=== PATIENT | female | born 1995 | race Caucasian/White ===

== ENCOUNTER 2017-02-19 03:43 | Observation (INO) ==
[2017-02-19] MEDS ORDERED: 0.9 % Sodium Chloride 1,000 ML IVC ONE ×2 (03:55→09:02)
--- NOTE | 2017-02-19 04:06 | Emergency Department Note ---
Disposition Clinical Impression: Abdominal pain Disposition: Still a Patient Condition: Good Forms: Work/School Release, ED Satisfaction Letter Time of Disposition: 05:48 Abdominal Pain HPI - General Chief Complaint: ED Abdominal Pain Stated Complaint: Abdominal Pain Time Seen by Provider: 02/19/17 03:55 Source: patient, EMS Mode of arrival: private vehicle Limitations: no limitations Nursing Notes Reviewed: Yes Vital Signs Reviewed: Yes - History of Present Illness HPI Narrative: 21-year-old female patient presents to the emergency department via EMS with complaint of epigastric abdominal pain. Patient was sent to this facility from [facility] for concerns of posible cholecystitis. Patient is 18 days from a vaginal delivery. She was evaluated and found to have an elevated bilirubin as well as elevated liver enzymes. Patient states that her abdominal pain began approximately 7 hours ago. Patient states that she has not eaten for 14 hours. She denies any fever, chills, nausea or vomiting. Pt Subjective Complaint: abdominal pain Onset (ago): hour(s) Consistency: intermittent Location: LUQ, epigastric Pain Severity: none Pain Scale: 0 Quality: aching Radiation: back Migration to: no migration Improves with: nothing Worsens with: nothing Associated symptoms: Reports: denies other symptoms Treatments prior to arrival: none - Related Data Allergies Allergy/AdvReac Type Severity Reaction Status Date / Time No Known Allergies Allergy Verified 02/19/17 04:00 All systems ED: reviewed and negative except as stated. Constitutional: Denies: fever, chills Cardiovascular: Denies: chest pain, palpitations Respiratory: Denies: cough, dyspnea Gastrointestinal: Reports: abdominal pain. Denies: nausea, vomiting Musculoskeletal: Denies: back pain, neck pain Integumentary: Denies: rash, abrasion, lesions Neurological: Denies: headache Psychiatric: Denies: anxiety, depression, suicidal thoughts, homicidal thoughts Abdominal Pain PMH - Past Medical History Medical history: Reports: no medical history Female Surgical History: Reports: other Psychiatric history: Reports: no psych history - Social History Smoking status: Never smoker Alcohol use: Reports: none Drug use: Reports: none Physical Exam - General Limitations: no limitations General appearance: alert - Head Head exam: atraumatic, normocephalic, normal inspection - Eye Eye exam: Present: normal appearance, PERRL - Neck Neck exam: Present: normal inspection, full ROM, trachea midline - Chest Chest inspection: Present: normal inspection, symmetric chest wall rise - Respiratory Respiratory exam: Present: normal lung sounds bilaterally. Absent: respiratory distress - Cardiovascular Cardiovascular exam: Present: regular rate, normal rhythm, normal heart sounds - Abdominal Exam Abdominal exam: Present: soft, tenderness, normal bowel sounds. Absent: distention, guarding, rebound, rigidity Abdominal tenderness: Present: LUQ, epigastrium, mild - Extremities Exam Extremities exam: Present: normal inspection, full ROM. Absent: tenderness, pedal edema - Expanded Lower Extremity Exam Gait: observed and normal - Back Exam Back exam: Present: normal inspection, full ROM. Absent: tenderness - Neurological Exam Neurological exam: Present: alert, oriented X3 - Psychiatric Psychiatric exam: Present: normal affect, normal mood - Skin Skin exam: Present: warm, dry, intact, normal color Course - Reevaluation(s) Reevaluation #1: Slightly elevated white blood cell count with no shift. Slightly elevated bilirubin. Patient resting comfortably in no distress. Asleep on reevaluation. Plan is to get an ultrasound of the gallbladder at 7 AM. Care will be transferred to [facility] @ 0600. Vital Signs Temperature 99.2 F 02/19/17 03:45 Pulse Rate 82 02/19/17 03:45 Respiratory Rate 18 02/19/17 03:45 Blood Pressure 126/87 02/19/17 03:45 O2 Sat by Pulse Oximetry 100 02/19/17 03:45 Temperature 99.2 F 02/19/17 03:45 Pulse Rate 82 02/19/17 03:45 Respiratory Rate 18 02/19/17 03:45 Blood Pressure 126/87 02/19/17 03:45 O2 Sat by Pulse Oximetry 100 02/19/17 03:45 Oxygen Delivery Oxygen Delivery Room Air Abdominal Pain - Lab Data Lab results reviewed: Yes I reviewed the patient's lab results.
[2017-02-19 04:21] LABS: Basophils # 0.1 K/mcL (0.0-0.2); Basophils % 0.4 %; Eosinophils # 0.4 K/mcL (0.0-0.6); Eosinophils % 3.3 %; Hematocrit 24.8 % (35.3-44.9); Hemoglobin 8.1 g/dL (11.5-15.4); Immature Granulocytes % 0.9 % (0-4); Lymphocytes # 3.2 K/mcL (0.6-4.6); Lymphocytes % 27.7 %; Mean Corpuscular HGB Conc 32.7 g/dL (31.6-35.5); Mean Corpuscular Hemoglobin 32.1 pg (28.0-33.3); Mean Corpuscular Volume 98.4 fL (83.0-100.0); Mean Platelet Volume 9.4 fL (9.4-12.4); Monocytes # 0.6 K/mcL (0.0-1.3); Monocytes % 4.9 %; Neutrophils # 7.3 K/mcL (1.6-8.9); Nucleated Red Blood Cells 0.4 /100 WBC (0); Platelet Count 459 K/mcL (140-400); Red Blood Count 2.52 M/mcL (3.82-4.97); Red Cell Distribution Width 22.1 % (11.5-14.5); Segmented Neutrophils % 62.8 %
[2017-02-19 04:23] LABS: Bilirubin,Urine Negative (Negative); Blood,Urine Small (Negative); Clarity,Urine Clear (Clear); Color,Urine Yellow (Yellow); Glucose,Urine (UA) Normal (Normal); Ketones,Urine Negative (Negative); Leukocyte Esterase,Urine Moderate (Negative); Nitrite,Urine Negative (Negative); PH,Urine 7.5 pH Units (5.0-8.0); Protein,Urine Negative (Neg-Trace); Specific Gravity,Urine 1.007 (1.010-1.025); Urobilinogen,Urine Normal (Normal)
[2017-02-19 04:25] LABS: INR 1.2; Prothrombin Time 12.5 Seconds (9.4-12.1)
[2017-02-19 04:26] LABS: Bacteria,Urine None Seen per hpf (None-Few); Hyaline Casts,Urine None Seen per lpf (None-Few); RBC,Urine 0-3 per hpf (0-3); Squamous Epithelial Cell,Urine Moderate per lpf (None-Few)
[2017-02-19 04:27] LABS: Activated Partial Thrombo Time 30.8 Seconds (26.0-36.0)
[2017-02-19 04:35] LABS: Alanine Aminotransferase 44 Units/L (0-55); Albumin 3.3 g/dL (3.5-5.0); Albumin/Globulin Ratio 0.9 (1.1-2.2); Alkaline Phosphatase 334 Units/L (38-126); Amylase 48 Units/L (25-125); Aspartate Amino Transferase 76 Units/L (5-34); BUN/Creatinine Ratio 8 (6-26); Bilirubin,Direct 0.8 mg/dL (0.0-0.5); Bilirubin,Indirect 1.4 mg/dL (0.0-1.2); Bilirubin,Total 2.2 mg/dL (0.2-1.2); Blood Urea Nitrogen 6 mg/dL (7-20); Calcium 8.8 mg/dL (8.6-10.8); Carbon Dioxide 29 mEq/L (19-29); Chloride 106 mEq/L (98-109); Globulin 3.5 g/dL (2.4-3.5); Glucose 96 mg/dL (70-99); Lipase 34 Units/L (8-78); Osmolality,Calculated 293 (280-300); Potassium 3.5 mEq/L (3.5-4.5); Sodium 143 mEq/L (136-145); Total Protein 6.8 g/dL (6.0-8.3); eGFR For African Americans > 60 (> 60); eGFR For Non-African Americans > 60 (> 60)
--- NOTE | 2017-02-19 06:24 | Emergency Department Note ---
Disposition Clinical Impression: Acute cholecystitis Disposition: Admitted As Inpatient Condition: Fair Referrals: NO,PCP [Primary Care Provider] - Forms: ED Satisfaction Letter, Work/School Release Time of Disposition: 09:02 Abdominal Pain HPI - General Chief Complaint: ED Abdominal Pain Stated Complaint: Abdominal Pain Time Seen by Provider: 02/19/17 03:55 Source: patient, EMS Mode of arrival: private vehicle - History of Present Illness Pt Subjective Complaint: abdominal pain Location: LUQ, epigastric Pain Severity: none Pain Scale: 0 Quality: aching Migration to: no migration Improves with: nothing Worsens with: nothing Associated symptoms: Reports: denies other symptoms - Related Data Allergies Allergy/AdvReac Type Severity Reaction Status Date / Time No Known Allergies Allergy Verified 02/19/17 04:00 Constitutional: Denies: fever, chills Cardiovascular: Denies: chest pain, palpitations Respiratory: Denies: cough, dyspnea Gastrointestinal: Reports: abdominal pain. Denies: nausea, vomiting Musculoskeletal: Denies: back pain, neck pain Integumentary: Denies: rash, abrasion, lesions Neurological: Denies: headache Psychiatric: Denies: anxiety, depression, suicidal thoughts, homicidal thoughts Abdominal Pain PMH - Past Medical History Medical history: Reports: no medical history Female Surgical History: Reports: other Psychiatric history: Reports: no psych history - Social History Smoking status: Never smoker Alcohol use: Reports: none Drug use: Reports: none Physical Exam - General Limitations: no limitations General appearance: alert Course Course Narrative: 0600: I have assumed care of this patient from Byron Parry PA-C due to mid- level should change. Please see Zelalem's note for physical exam and care performed up until this point. Briefly, the patient is a 25-year-old female that was sent from [facility] for evaluation of epigastric and right upper quadrant pain that began abruptly at approximately 9 PM yesterday evening. She was found to have an elevated bilirubin as well as elevated liver enzymes. The patient is 18 days from a vaginal delivery without complications. She denies fever, chills, nausea, vomiting. She states that her abdominal pain did not begin postprandially, and that she had not eaten for approximately 14 hours prior to the onset of her abdominal pain. Laboratory results have been reviewed and an ultrasound of the gallbladder is pending at this time. The patient is resting in bed comfortably at this time. I spoke with Dr. Doan, who recommends consultation with surgery on-call for further recommendations. 09: I spoke with Dr. Aldana, general surgery. Dr. Aldana accepts the patient for admission to his service. Vital Signs Temperature 99.2 F 02/19/17 03:45 Pulse Rate 82 02/19/17 03:45 Respiratory Rate 18 02/19/17 03:45 Blood Pressure 126/87 02/19/17 03:45 O2 Sat by Pulse Oximetry 100 02/19/17 03:45 Temperature 99.2 F 02/19/17 03:45 Pulse Rate 101 02/19/17 08:35 Respiratory Rate 16 02/19/17 08:35 Blood Pressure 121/91 02/19/17 08:35 O2 Sat by Pulse Oximetry 99 02/19/17 08:36 Oxygen Delivery Oxygen Delivery Room Air Abdominal Pain - Medical Records Medical records reviewed: Yes I reviewed the patient's medical records. - Lab Data Lab results reviewed: Yes I reviewed the patient's lab results. Lab results narrative: Laboratory Last Values WBC 11.7 K/mcL (4.3-11.1) H 02/19/17 04:09 RBC 2.52 M/mcL (3.82-4.97) L 02/19/17 04:09 Hgb 8.1 g/dL (11.5-15.4) L 02/19/17 04:09 Hct 24.8 % (35.3-44.9) L 02/19/17 04:09 MCV 98.4 fL (83.0-100.0) 02/19/17 04:09 MCH 32.1 pg (28.0-33.3) 02/19/17 04:09 MCHC 32.7 g/dL (31.6-35.5) 02/19/17 04:09 RDW 22.1 % (11.5-14.5) H 02/19/17 04:09 Plt Count 459 K/mcL (140-400) H 02/19/17 04:09 MPV 9.4 fL (9.4-12.4) 02/19/17 04:09 Immature Gran % 0.9 % (0-4) 02/19/17 04:09 Seg Neutrophils % 62.8 % 02/19/17 04:09 Lymphocytes % 27.7 % 02/19/17 04:09 Monocytes % 4.9 % 02/19/17 04:09 Eosinophils % 3.3 % 02/19/17 04:09 Basophils % 0.4 % 02/19/17 04:09 Neutrophils # 7.3 K/mcL (1.6-8.9) 02/19/17 04:09 Lymphocytes # 3.2 K/mcL (0.6-4.6) 02/19/17 04:09 Monocytes # 0.6 K/mcL (0.0-1.3) 02/19/17 04:09 Eosinophils # 0.4 K/mcL (0.0-0.6) 02/19/17 04:09 Basophils # 0.1 K/mcL (0.0-0.2) 02/19/17 04:09 Nucleated RBCs/100 WBC 0.4 /100 WBC (0) H 02/19/17 04:09 PT 12.5 Seconds (9.4-12.1) H 02/19/17 04:09 INR 1.2 02/19/17 04:09 APTT 30.8 Seconds (26.0-36.0) 02/19/17 04:09 Sodium 143 mEq/L (136-145) 02/19/17 04:09 Potassium 3.5 mEq/L (3.5-4.5) 02/19/17 04:09 Chloride 106 mEq/L (98-109) 02/19/17 04:09 Carbon Dioxide 29 mEq/L (19-29) 02/19/17 04:09 BUN 6 mg/dL (7-20) L 02/19/17 04:09 Creatinine 0.80 mg/dL (0.57-1.11) 02/19/17 04:09 Est GFR ( Amer) > 60 (> 60) 02/19/17 04:09 Est GFR (Non-Af Amer) > 60 (> 60) 02/19/17 04:09 BUN/Creatinine Ratio 8 (6-26) 02/19/17 04:09 Glucose 96 mg/dL (70-99) 02/19/17 04:09 Calculated Osmolality 293 (280-300) 02/19/17 04:09 Calcium 8.8 mg/dL (8.6-10.8) 02/19/17 04:09 Total Bilirubin 2.2 mg/dL (0.2-1.2) H 02/19/17 04:09 Direct Bilirubin 0.8 mg/dL (0.0-0.5) H 02/19/17 04:09 Indirect Bilirubin 1.4 mg/dL (0.0-1.2) H 02/19/17 04:09 AST 76 Units/L (5-34) H 02/19/17 04:09 ALT 44 Units/L (0-55) 02/19/17 04:09 Alkaline Phosphatase 334 Units/L (38-126) H 02/19/17 04:09 Serum Total Protein 6.8 g/dL (6.0-8.3) 02/19/17 04:09 Albumin 3.3 g/dL (3.5-5.0) L 02/19/17 04:09 Globulin 3.5 g/dL (2.4-3.5) 02/19/17 04:09 Albumin/Globulin Ratio 0.9 (1.1-2.2) L 02/19/17 04:09 Amylase 48 Units/L (25-125) 02/19/17 04:09 Lipase 34 Units/L (8-78) 02/19/17 04:09 Urine Color Yellow (Yellow) 02/19/17 04:09 Urine Clarity Clear (Clear) 02/19/17 04:09 Urine pH 7.5 pH Units (5.0-8.0) 02/19/17 04:09 Ur Specific [place] 1.007 (1.010-1.025) L 02/19/17 04:09 Urine Protein Negative mg/dL (Neg-Trace) 02/19/17 04:09 Urine Glucose (UA) Normal mg/dL (Normal) 02/19/17 04:09 Urine Ketones Negative mg/dL (Negative) 02/19/17 04:09 Urine Blood Small (Negative) H 02/19/17 04:09 Urine Nitrite Negative (Negative) 02/19/17 04:09 Urine Bilirubin Negative (Negative) 02/19/17 04:09 Urine Urobilinogen Normal mg/dL (Normal) 02/19/17 04:09 Ur Leukocyte Esterase Moderate (Negative) H 02/19/17 04:09 Urine Microscopic RBC 0-3 per hpf (0-3) 02/19/17 04:09 Urine Microscopic WBC 5-15 per hpf (0-3) H 02/19/17 04:09 Ur Squamous Epith Cells Moderate per lpf (None-Few) H 02/19/17 04:09 Urine Bacteria None Seen per hpf (None-Few) 02/19/17 04:09 Hyaline Casts None Seen per lpf (None-Few) 02/19/17 04:09 Ur Culture Indicated? YES (NO) A 02/19/17 04:09 Urine Test Negative (Negative) 02/19/17 04:09 Result diagrams: 02/19/17 04:09 02/19/17 04:09 Lab Results 02/19/17 02/19/17 02/19/17 Range/Units 04:09 04:09 04:09 WBC 11.7 H (4.3-11.1) K/mcL RBC 2.52 L (3.82-4.97) M/mcL Hgb 8.1 L (11.5-15.4) g/dL Hct 24.8 L (35.3-44.9) % MCV 98.4 (83.0-100.0) fL MCH 32.1 (28.0-33.3) pg MCHC 32.7 (31.6-35.5) g/dL RDW 22.1 H (11.5-14.5) % Plt Count 459 H (140-400) K/mcL MPV 9.4 (9.4-12.4) fL Immature Gran % 0.9 (0-4) % Seg Neutrophils % 62.8 % Lymphocytes % 27.7 % Monocytes % 4.9 % Eosinophils % 3.3 % Basophils % 0.4 % Neutrophils # 7.3 (1.6-8.9) K/mcL Lymphocytes # 3.2 (0.6-4.6) K/mcL Monocytes # 0.6 (0.0-1.3) K/mcL Eosinophils # 0.4 (0.0-0.6) K/mcL Basophils # 0.1 (0.0-0.2) K/mcL Nucleated RBCs/100 WBC 0.4 H (0) /100 WBC PT 12.5 H (9.4-12.1) Seconds INR 1.2 APTT 30.8 (26.0-36.0) Seconds Sodium (136-145) mEq/L Potassium (3.5-4.5) mEq/L Chloride (98-109) mEq/L Carbon Dioxide (19-29) mEq/L BUN (7-20) mg/dL Creatinine (0.57-1.11) mg/dL Est GFR ( Amer) (> 60) Est GFR (Non-Af Amer) (> 60) BUN/Creatinine Ratio (6-26) Glucose (70-99) mg/dL Calculated Osmolality (280-300) Calcium (8.6-10.8) mg/dL Total Bilirubin (0.2-1.2) mg/dL Direct Bilirubin (0.0-0.5) mg/dL Indirect Bilirubin (0.0-1.2) mg/dL AST (5-34) Units/L ALT (0-55) Units/L Alkaline Phosphatase (38-126) Units/L Serum Total Protein (6.0-8.3) g/dL Albumin (3.5-5.0) g/dL Globulin (2.4-3.5) g/dL Albumin/Globulin Ratio (1.1-2.2) Amylase (25-125) Units/L Lipase (8-78) Units/L Urine Color Yellow (Yellow) Urine Clarity Clear (Clear) Urine pH 7.5 (5.0-8.0) pH Units Ur Specific [place] 1.007 L (1.010-1.025) Urine Protein Negative (Neg-Trace) mg/dL Urine Glucose (UA) Normal (Normal) mg/dL Urine Ketones Negative (Negative) mg/dL Urine Blood Small H (Negative) Urine Nitrite Negative (Negative) Urine Bilirubin Negative (Negative) Urine Urobilinogen Normal (Normal) mg/dL Ur Leukocyte Esterase Moderate H (Negative) Urine Microscopic RBC 0-3 (0-3) per hpf Urine Microscopic WBC 5-15 H (0-3) per hpf Ur Squamous Epith Cells Moderate H (None-Few) per lpf Urine Bacteria None Seen (None-Few) per hpf Hyaline Casts None Seen (None-Few) per lpf Ur Culture Indicated? YES A (NO) Urine Test (Negative) 02/19/17 02/19/17 Range/Units 04:09 04:09 WBC (4.3-11.1) K/mcL RBC (3.82-4.97) M/mcL Hgb (11.5-15.4) g/dL Hct (35.3-44.9) % MCV (83.0-100.0) fL MCH (28.0-33.3) pg MCHC (31.6-35.5) g/dL RDW (11.5-14.5) % Plt Count (140-400) K/mcL MPV (9.4-12.4) fL Immature Gran % (0-4) % Seg Neutrophils % % Lymphocytes % % Monocytes % % Eosinophils % % Basophils % % Neutrophils # (1.6-8.9) K/mcL Lymphocytes # (0.6-4.6) K/mcL Monocytes # (0.0-1.3) K/mcL Eosinophils # (0.0-0.6) K/mcL Basophils # (0.0-0.2) K/mcL Nucleated RBCs/100 WBC (0) /100 WBC PT (9.4-12.1) Seconds INR APTT (26.0-36.0) Seconds Sodium 143 (136-145) mEq/L Potassium 3.5 (3.5-4.5) mEq/L Chloride 106 (98-109) mEq/L Carbon Dioxide 29 (19-29) mEq/L BUN 6 L (7-20) mg/dL Creatinine 0.80 (0.57-1.11) mg/dL Est GFR ( Amer) > 60 (> 60) Est GFR (Non-Af Amer) > 60 (> 60) BUN/Creatinine Ratio 8 (6-26) Glucose 96 (70-99) mg/dL Calculated Osmolality 293 (280-300) Calcium 8.8 (8.6-10.8) mg/dL Total Bilirubin 2.2 H (0.2-1.2) mg/dL Direct Bilirubin 0.8 H (0.0-0.5) mg/dL Indirect Bilirubin 1.4 H (0.0-1.2) mg/dL AST 76 H (5-34) Units/L ALT 44 (0-55) Units/L Alkaline Phosphatase 334 H (38-126) Units/L Serum Total Protein 6.8 (6.0-8.3) g/dL Albumin 3.3 L (3.5-5.0) g/dL Globulin 3.5 (2.4-3.5) g/dL Albumin/Globulin Ratio 0.9 L (1.1-2.2) Amylase 48 (25-125) Units/L Lipase 34 (8-78) Units/L Urine Color (Yellow) Urine Clarity (Clear) Urine pH (5.0-8.0) pH Units Ur Specific [place] (1.010-1.025) Urine Protein (Neg-Trace) mg/dL Urine Glucose (UA) (Normal) mg/dL Urine Ketones (Negative) mg/dL Urine Blood (Negative) Urine Nitrite (Negative) Urine Bilirubin (Negative) Urine Urobilinogen (Normal) mg/dL Ur Leukocyte Esterase (Negative) Urine Microscopic RBC (0-3) per hpf Urine Microscopic WBC (0-3) per hpf Ur Squamous Epith Cells (None-Few) per lpf Urine Bacteria (None-Few) per hpf Hyaline Casts (None-Few) per lpf Ur Culture Indicated? (NO) Urine Test Negative (Negative) - Radiology Data Radiology results reviewed: Yes I reviewed the patient's radiology results. Gallbladder Ultrasound 02/19/17 06:15 IMPRESSION: 1. Gallstones with mild gallbladder wall thickening. This may suggest cholecystitis. Consider a follow-up nuclear medicine HIDA scan for further evaluation. 2. Nonspecific 1.7 cm hypoechoic nodule within the right hepatic lobe, most likely a cyst. Suggest further characterization of this abnormality with a follow-up multiphasic liver protocol CT or MR study. 3. Normal sonographic appearance of the common bile duct, right kidney, and pancreas. D/ / Kar Douglas MD / Kra Douglas MD Interpreting Provider: Kra Douglas MD Attestation Statement - Attestation Attestation: I examined this patient and my medical decision-making was reviewed with the Advanced Practice Nurse. I agree with the documented findings, disposition and treatment plan as described except to the extent set forth below. Pain resolved at this point, but has significant tenderness to palpation; no guarding or peritonitis. Labs and ultrasound consistent with calculous cholecystitis; CBD normal. Surgery paged.
--- NOTE | 2017-02-19 06:26 | Emergency Department Note ---
START Narrative - START START: I, David Vasques, examined this patient and my medical decision-making was reviewed with the [employer]ED OPERATOR MAINTAINER/PA/Advanced Practice Nurse/Resident Physician. I agree with the documented findings, disposition and treatment plan as described except to the extent set forth below. 21-year-old female, 18 days from vaginal delivery without complication. Present for epigastric and right upper quadrant abdominal pain, sent in from urgent care for formal ultrasound of the gallbladder. Patient reports her pain is sharp, stabbing, located in the right upper quadrant and epigastrium, nonradiating, lasting to 3 hours at a time, not associated with food intake. Patient has elevated bilirubin, elevated LFTs. Denies change of pain with food intake. Patient has mild vaginal bleeding but denies vaginal discharge. Patient reports being constipated for the past 3 weeks, taking multiple stool softeners over the past week. Patient will be signed out to the day physician pending formal ultrasound of the gallbladder.
[2017-02-19] MEDS ORDERED: *HR* HYDROmorphone (PF) 1 MG/ML SYRINGE IVP PRN (10:11)
[2017-02-19] MEDS ORDERED: 0.9 % Sodium Chloride 1,000 ML IVC SCH ×4 (10:15→17:32)
[2017-02-19] MEDS ORDERED: Ondansetron 4 MG/2 ML VIAL IVP PRN ×3 (10:28→17:32)
[2017-02-19] MEDS ORDERED: Ondansetron 4 MG/2 ML VIAL IVP SCH (12:00)
--- NOTE | 2017-02-19 14:55 | General Surg History&Physical ---
Date of Encounter: 02/19/17 Time of Encounter: 14:30 Assessment and Plan (1) Acute cholecystitis Current Visit: Yes Status: Acute Plan for laparoscopic cholecystectomy with cholangiogram today. Risks, benefits , and expected outcomes explained to the patient and she agrees to proceed. The assessment and plan as outlined above was discussed with the patient and/or family members who expressed understanding and agreement. All questions were answered. History of Present Illness HPI: Ms. Babb is a 21 year old female that is 18 days status post vaginal delivery. She states she had 2 episodes during the end of her when she had right upper quadrant pain. Pain started approximate 14 hours ago. She states it was not post prandial. She does report pain in her right upper quadrant with some associated nausea when it does occur. She rates the pain is moderate and aching in nature. Past Med Surg Social Fam HX - Past Medical History Medical history: no medical history Psychiatric history: no psych history - Social History Smoking Status: Never smoker Smokeless Tobacco Status: No Alcohol use: none Drug use: none Medications and Allergies No Known Home Drugs 02/19/17 [History] Allergies No Known Allergies Allergy (Verified 02/19/17 04:00) Review of Systems All systems PM: reviewed and no additional remarkable complaints except as stated All systems PM: A 10-system review of systems was performed and is negative for pertinent findings except as documented above in the HPI. General Surgery Exam Initial Vital Signs Temp Pulse Resp BP Pulse Ox 99.2 F 82 18 126/87 100 02/19/17 03:45 02/19/17 03:45 02/19/17 03:45 02/19/17 03:45 02/19/17 03:45 - Eyes PERRL, normal ocular movement - Neck no bruits, trachea midline - Respiratory normal respiratory effort - Cardiovascular Cardiovascular exam: Present: NR, no murmurs/rubs/gallops - Abdomen Abdomen general surgery: Present: tender Abdominal Tenderness: Present: RUQ - Neurologic Present: CN 2-12 grossly intact, normal coordination, normal sensation Results - Labs 02/19/17 04:09 02/19/17 04:09 Abnormal lab results WBC 11.7 K/mcL (4.3-11.1) H 02/19/17 04:09 RBC 2.52 M/mcL (3.82-4.97) L 02/19/17 04:09 Hgb 8.1 g/dL (11.5-15.4) L 02/19/17 04:09 Hct 24.8 % (35.3-44.9) L 02/19/17 04:09 RDW 22.1 % (11.5-14.5) H 02/19/17 04:09 Plt Count 459 K/mcL (140-400) H 02/19/17 04:09 Nucleated RBCs/100 WBC 0.4 /100 WBC (0) H 02/19/17 04:09 PT 12.5 Seconds (9.4-12.1) H 02/19/17 04:09 BUN 6 mg/dL (7-20) L 02/19/17 04:09 Total Bilirubin 2.2 mg/dL (0.2-1.2) H 02/19/17 04:09 Direct Bilirubin 0.8 mg/dL (0.0-0.5) H 02/19/17 04:09 Indirect Bilirubin 1.4 mg/dL (0.0-1.2) H 02/19/17 04:09 AST 76 Units/L (5-34) H 02/19/17 04:09 Alkaline Phosphatase 334 Units/L (38-126) H 02/19/17 04:09 Albumin 3.3 g/dL (3.5-5.0) L 02/19/17 04:09 Albumin/Globulin Ratio 0.9 (1.1-2.2) L 02/19/17 04:09 Ur Specific [place] 1.007 (1.010-1.025) L 02/19/17 04:09 Urine Blood Small (Negative) H 02/19/17 04:09 Ur Leukocyte Esterase Moderate (Negative) H 02/19/17 04:09 Urine Microscopic WBC 5-15 per hpf (0-3) H 02/19/17 04:09 Ur Squamous Epith Cells Moderate per lpf (None-Few) H 02/19/17 04:09 Ur Culture Indicated? YES (NO) A 02/19/17 04:09 All other labs normal. - Imaging US - abdomen: image reviewed
[2017-02-19] MEDS ORDERED: *HR* OxyCODONE/APAP 5/325 TABLET PO PRN (14:56)
--- NOTE | 2017-02-19 14:59 | Operative Note ---
Date of procedure: 02/19/17 Pre-op diagnosis: Cholecystitis Post-op diagnosis: same Procedure: Laparoscopic cholecystectomy with cholangiogram Anesthesia: ALICIA Surgeon: Walker Aldana Estimated blood loss (cc): 5 Specimen: gb Condition: stable Disposition: same day Procedure in Detail: After informed consent, patient was taken the operating room placed in the supine position. After adequate sedation anesthesia the abdomen was prepped and draped. An incision was made in the subxiphoid region with an eleven blade knife. A 12 mm cannula was then placed into the abdomen under direct visualization. Once a pneumoperitoneum was established two individual 8 mm cannulas were placed in the right and left upper quadrant. The patient was placed in a headdown position the abdomen was evaluated and found to have a right and left inguinal hernias. The robot was docked over the patient's left hip. The robotic arms were connected to the 8 mm cannulas. A Cadiere clamp and large suture cut needle stake driver was placed into the abdomen. A 4 x 6" mesh had been cut and fashioned and placed within the abdomen. A 2 x 6 mesh was also placed. The peritoneum was then taken down scissors. The pubic tubercle was visualized, as was the iliac artery and vein and the inferior epigastric vessels. The hernia sac was seen attached to the spermatic cord structures. This was dissected free from the cord structures. Once completed the 4 x 6 piece of mesh was then placed in the preperitoneal space. It was sutured to the fascia of the pubic tubercle and an 0 Vicryl suture was then used to run the mesh in place medially and superiorly. The inferior limb of the mesh was brought inferior to the spermatic cord structures area it too was sutured superiorly and laterally. The 2 x 6 piece of mesh was then placed over the internal ring. It was sutured again to the pubic tubercle medially and brought out through the peritoneum. A second suture was brought out laterally on the peritoneum they were run towards the midline, then tied and secured. A second 4 x 6" mesh had been cut and fashioned and placed within the abdomen. A 2 x 6 mesh was also placed. The peritoneum was then taken down scissors. The pubic tubercle was visualized, as was the iliac artery and vein and the inferior epigastric vessels. The hernia sac was seen attached to the spermatic cord structures. This was dissected free from the cord structures. Once completed the 4 x 6 piece of mesh was then placed in the preperitoneal space. It was sutured to the fascia of the pubic tubercle and an 0 Vicryl suture was then used to run the mesh in place medially and superiorly. The inferior limb of the mesh was brought inferior to the spermatic cord structures area it too was sutured superiorly and laterally. The 4 x 6 piece of mesh was then placed over the internal ring. It was sutured again to the pubic tubercle medially and brought out through the peritoneum. A second suture was brought out laterally on the peritoneum they were run towards the midline, then tied and secured 4 individual needles were then retrieved from the abdomen. The pneumoperitoneum was evacuated from the abdomen. The 12 mm cannula site was then closed with an 0 Vicryl suture. The skin was closed with 4-0 Vicryl suture followed by Dermabond. All instrument counts and needle counts were correct in the case. The patient was taken to the recovery room in stable condition.
--- NOTE | 2017-02-19 15:09 | Anesthesia Evaluation PreOp ---
Date of Encounter: 02/19/17 Time of Encounter: 15:05 - Past History Planned Operation: Lap Cholecystectomy Cardiac History: Denies any Significant Hx Pulmonary History: Denies Any Significant HX CHAIN MAKER History: Denies Any Significant HX Other Medical History: Denies Any Significant HX Anesthesia History: No Prior Anesthetic Complications : No Test: Negative Alcohol Use: none Drug use: none Medications and Allergies No Known Home Drugs 02/19/17 [History] Allergies No Known Allergies Allergy (Verified 02/19/17 04:00) - Meds/Allergy Pre-op Review Medications Reviewed: Yes Allergies Reviewed: Yes Beta Blockers on Current Med List: No Anesthesia Results - Labs 02/19/17 04:09 02/19/17 04:09 Laboratory Tests 02/19/17 02/19/17 02/19/17 04:09 04:09 04:09 Hgb 8.1 L Hct 24.8 L Plt Count 459 H PT 12.5 H INR 1.2 Sodium 143 Potassium 3.5 BUN 6 L Creatinine 0.80 Urine Test 02/19/17 04:09 Hgb Hct Plt Count PT INR Sodium Potassium BUN Creatinine Urine Test Negative Anesthesia Exam O2 Sat Height 1.65 m Height 1.65 m Weight 82.554 kg Weight 83.007 kg O2 Sat by Pulse Oximetry 98 O2 Sat by Pulse Oximetry 99 O2 Sat by Pulse Oximetry 99 O2 Sat by Pulse Oximetry 99 O2 Sat by Pulse Oximetry 100 O2 Sat by Pulse Oximetry 99 O2 Sat by Pulse Oximetry 100 Vital Signs Temp Pulse Resp BP Pulse Ox 99.2 F 82 18 126/87 100 02/19/17 03:45 02/19/17 03:45 02/19/17 03:45 02/19/17 03:45 02/19/17 03:45 Height: 5'5 Weight: 182 lbs NPO (# of Hours): MN Pain Scale: 0 - HEENT Pupil (Motor): Pupils equal, EOMI Mallampati: II Teeth: Normal Oral Opening: Greater than 3 - CHAIN MAKER LOC: Oriented CHAIN MAKER Motor: Normal RUE, Normal LUE, Normal RLE, Normal LLE, Normal Face CHAIN MAKER Sensory: Normal: RUE, LUE, RLE, LLE, Face - Cardiac Rhythm: Regular Murmur: None JVD: No Carotid Bruit: No - Pulmonary Breath Sounds: bilateral Clear Respiratory Effort: Symmetrical Anesthesia Assess/Plan ASA Score: 1 Modified [place] Scale for Level of Consciousness: Cooperative, oriented, and tranquil Anesthetic Plan: General Monitoring Plan: Standard Monitors Recovery Plan: PACU (Discussed GA, agrees to proceed)
[2017-02-19] MEDS ORDERED: *HR* Promethazine 25 MG/ML VIAL IVP PRN (16:26)
[2017-02-19] MEDS ORDERED: *HR* Propofol 200 MG/20 ML VIAL IVP ONE (16:31)
[2017-02-19] MEDS ORDERED: *HR* FentaNYL (PF) 100 MCG/2 ML VIAL ONE (16:31)
[2017-02-19] MEDS ORDERED: CefOXitin 2,000 MG VIAL IVPB ONE (16:31)
[2017-02-19] MEDS ORDERED: *HR* Midazolam HCl 2 MG/2 ML VIAL ONE (16:31)
[2017-02-19] MEDS ORDERED: Dexamethasone 4 MG/ML VIAL ONE (16:31)
[2017-02-19] MEDS ORDERED: Lidocaine -MPF 2% 2 ML VIAL ONE (16:31)
[2017-02-19] MEDS ORDERED: Ondansetron 4 MG/2 ML VIAL ONE (16:31)
[2017-02-19] MEDS ORDERED: *HR* Rocuronium Bromide 50 MG/5 ML VIAL ONE (16:31)
[2017-02-19] MEDS ORDERED: Ketorolac 30 MG/ML VIAL ONE (16:31)
[2017-02-19] MEDS ORDERED: Neostigmine Methylsulfate 3 MG/3 ML SYRINGE ONE (16:31)
--- NOTE | 2017-02-19 16:32 | Operative Note ---
Date of procedure: 02/19/17 Pre-op diagnosis: cholecystitis Post-op diagnosis: same Procedure: Laparoscopic cholecystectomy and attempted cholangiogram Anesthesia: ALICIA Surgeon: Walker Aldana Estimated blood loss (cc): 5 Specimen: gb Condition: stable Disposition: same day Procedure in Detail: After informed consent this patient was taken the operating room placed supine position. After adequate sedation anesthesia the abdomen was prepped and draped. A proper timeout was performed. Two towel clamps are placed at the umbilicus and a Veres needle was inserted into the abdomen. A 5 mm incision was made at the umbilicus. A 12 mm incision was made in the subxiphoid region. Two 5 mm incisions were made in the right upper quadrant that were 4 finger breadths and 6 finger breadths below the costal margin. The gallbladder was identified, retracted anteriorly and cephalad, and the infundibulum was skeletonized. The cystic duct was easily identified and was dissected free. A ductotomy was created in the cystic duct. A taut catheter was placed within the cystic duct and clipped. A cholangiogram was attempted, however the c arm failed. Once this was confirmed the clippers removed, the taut catheter was removed as well, and the cystic duct was clipped distally. The cystic duct was then transected with scissors. The gallbladder was resected off the liver surface. There was excellent hemostasis. The gallbladder was then retrieved through the 12 mm cannula site. At this point the abdomen was suctioned dry and the pneumoperitoneum was then evacuated. All ports were removed. The 12 mm cannula site was closed with an 0 Vicryl suture in [id number] fashion. The skin was closed with 4-0 Vicryl suture. Dermabond was placed as well. All instrument counts and needle counts are correct in the operation. The patient tolerated the procedure well and was transferred to the PACU in stable condition.
[2017-02-19] MEDS: *HR* HYDROmorphone (PF) 1 MG/ML SYRINGE IVP PRN ×3 (16:50→20:51)
--- NOTE | 2017-02-19 17:16 | Anesthesia Evaluation Post Op ---
Date of Encounter: 02/19/17 Time of Encounter: 17:16 - Vital Signs Vital Signs: Vital Signs/O2 Sat, Most Current Temp Pulse Resp BP Pulse Ox 97.5 F L 56 16 120/81 98 02/19/17 17:14 02/19/17 17:14 02/19/17 17:14 02/19/17 17:14 02/19/17 17:14 - Lungs Lungs: Clear Ascult./Percussion - Airway Airway: Non-obstructed - Cardiovascular Regular Rate - Mental Status Mental Status: Alert & Oriented, Answers Appropriately - Pain Pain Scale: 3 Pain Scale used: Numeric (1 - 10) - Nausea Vomiting Nausea Vomiting: Not Present - Hydration Hydration: NPO, Has not voided - Discharge PostOp Status: Transfer Patient to floor
[2017-02-20] MEDS: *HR* HYDROmorphone (PF) 1 MG/ML SYRINGE IVP PRN ×2 (00:51→07:44)
--- NOTE | 2017-02-20 09:17 | General Surgery Progress Note ---
Date of Encounter: 02/20/17 Objective Vital Signs - Last 8 Hours Temp Pulse Resp BP Pulse Ox 02/20/17 06:56 97.6 F 67 16 114/78 100 02/20/17 03:30 97.7 F 60 16 94/61 98 Intake and Output 02/19/17 02/20/17 02/20/17 23:59 07:59 15:59 Intake Total 480 / 480 Output Total 5 / 5 Balance -5 / -5 480 / 480 Intake: Oral 480 / 480 Output: Estimated Blood Loss 5 Other: Meal Breakfast Percent of Meal Consumed 100% # Voids 3 Weight 84.504 kg Patient Weight 02/20/17 23:59 Weight 84.504 kg - Labs 02/19/17 04:09 02/19/17 04:09 Consult Discharge Plan - Plan Referrals: NO,PCP [Primary Care Provider] -
[2017-02-20] MEDS ORDERED: *HR* OxyCODONE/APAP 5/325 TABLET PO PRN (11:28)
[2017-02-20 11:51] VITALS: BP 106/71
--- NOTE | 2017-02-20 13:54 | Discharge Summary ---
Date of Encounter: 02/20/17 Time of Encounter: 13:52 - Discharge Diagnosis (1) Acute cholecystitis Priority: Primary Status: Acute - Discharge Medications Prescriptions: OxyCODONE/APAP 5/325 [Percocet 5/325 MG] 1 each PO Q6HR PRN #30 tablet PRN Reason: Pain Docusate [Colace] 100 mg PO BID #60 capsule Home Medications: Docusate [Colace] 100 mg PO BID #60 capsule 02/20/17 [Rx] OxyCODONE/APAP 5/325 [Percocet 5/325 MG] 1 each PO Q6HR PRN #30 tablet 02/20/17 [Rx] Allergies/Adverse Reactions: Allergies No Known Allergies Allergy (Verified 02/19/17 04:00) General Surgery Exam Initial Vital Signs Temp Pulse Resp BP Pulse Ox 99.2 F 82 18 126/87 100 02/19/17 03:45 02/19/17 03:45 02/19/17 03:45 02/19/17 03:45 02/19/17 03:45 - General physical appearance no distress - Eyes normal ocular movement - Neck trachea midline - Respiratory normal expansion, normal respiratory effort, clear to auscultation - Cardiovascular Cardiovascular exam: Present: RRR, no murmurs/rubs/gallops. Absent: JVD - Abdomen Abdomen general surgery: Present: bowel sounds present, soft (minimal tenderness to palpation RUQ and suprapubic) - Incision Incision: Present: clean and dry, intact - Integumentary Integumentary general surgery: Present: warm and dry - Neurologic Present: normal sensation - Psychiatric Psychiatric general surgery: Present: A&Ox3, appropriate, speech is normal Date of admission: 02/19/17 09:33 Primary care physician: PCP PATRICIA Discharging clinician: Walker Aldana Anticipated date of discharge: 02/20/17 - Patient Status Disposition: Home, Self-Care Condition: Good Functional capacity at discharge: independent ambulation Overall status at discharge: patient is progressing back to baseline - Discharge Instructions Follow Up With: PATRICIA,PCP [Primary Care Provider] - Sydney Fields CERTIFICATION AND SELECTION SPECIALIST [Advanced Practice Nurse] - 03/03/17 11:30 am Additional Instructions: 1. May shower today. No tub bath for 2 weeks. 2. Wash incisions with soap and water and pat dry daily. 3. No lifting more than 20 lbs for [address] off narcotics for over 24 hours and able to react safely in the car. 5. May climb stairs. - Diet and Activity Activity: other (see instructions above.) Diet: advance to your usual diet - Hospital Course Hospital course: Ms. Babb is a 21 year old female who presented with abdominal pain was found to have acute cholecystitis. She was taken to the OR by Dr Aldana for laproscopic cholecystectomy. On post op day one she is tolerating liquids without nausea or vomiting, vitals stable she is afebrile, pain is well controlled, she is voiding and ambulating without difficulty. Begin discharge planning and for follow up in 10 -14 days. - Time Spent with Patient Total time spent providing and/or coordinating discharge services: Less than 30 minutes
== END 2017-02-20 16:10 | disposition home or self-care (01) ==
LOC: EMEROO 03:43 → 3BNU 03:43
PROVIDERS: ADMIT Surgery; ATTEND Surgery